=== PATIENT | female | born 1960 | race Caucasian/White ===

== ENCOUNTER 2023-08-31 05:00 | Observation (INO) ==
[2023-08-31] MEDS ORDERED: Propofol 10 MG/ML 20 ML BTL ONE ×2 (05:32→10:37)
[2023-08-31] MEDS ORDERED: Succinylcholine 200 mg VIAL 20 mg/ml 10 ml VIAL (200 mg) ONE (05:43)
[2023-08-31] MEDS ORDERED: Propofol 10 MG/ML 20 ML BTL IV PUSH ONE (05:43)
[2023-08-31] MEDS ORDERED: Rocuronium 50 mg VIAL 10 mg/ml 5 ml VIAL (50 mg) ONE (05:43)
[2023-08-31] MEDS ORDERED: fentaNYL 100 mcg/2 ml 50 MCG/ML VIAL IV SLOW PU ONE ×2 (05:53→06:14)
[2023-08-31 06:56] LABS: ABS Lymphocytes 1.8 10^3/uL (1.0-4.8); ABS Monocytes 0.5 10^3/uL (0.0-0.9); ABS Neutrophils 6.8 10^3/uL (1.5-7.6); ABS Nucleated RBC 0.02 10^3/ul; Eosinophil % 0.3 %; Hemoglobin 13.4 g/dL (11.5-14.3); Lymphocyte % 19.5 %; Mean Corpuscular Hemoglobin 27.4 pg (27-33); Mean Corpuscular Hgb Conc 33.5 g/dL (31-36); Mean Corpuscular Volume 81.8 fL (80-97); Mean Platelet Volume 7.1 fL (7.5-11.2); Nucleated Red Blood Cells % 0.2 %/100WBC (0.0-0.8); Platelet Count 252 10^3/uL (150-450); Red Blood Count 4.89 10^6/uL (3.63-4.92); Red Cell Distribution Width 14.9 % (12-17); White Blood Count 9.2 10^3/uL (3.8-11.8)
[2023-08-31 07:06] LABS: Albumin 4.2 g/dL (3.2-5.2); Albumin/Globulin Ratio 1.4 (1-3); Calcium 9.1 mg/dL (8.6-10.3); Creatinine, Serum 0.68 mg/dL (0.51-0.95); Globulin 3.1 g/dL (2-4); Potassium 3.9 mmol/L (3.5-5.0); Total Bilirubin 0.7 mg/dL (0.2-1.0); Total Protein 7.3 g/dL (6.4-8.9); eGFR CKD-EPI 96.6 (>60)
[2023-08-31] MEDS ORDERED: Senna TAB 8.6 mg TAB PO PRN (07:08)
[2023-08-31] MEDS ORDERED: Ondansetron 4 mg VIAL 2 MG/ML 2 ml VIAL IV PRN (07:08)
[2023-08-31] MEDS ORDERED: Polyethylene Glycol 3350 17 GM PACKET PO PRN (07:08)
[2023-08-31] MEDS ORDERED: HYDROmorphone 1 MG/1 ML SYRINGE IV ONE (07:24)
[2023-08-31] MEDS ORDERED: hydrALAZINE 20 mg/ml 1 ML Vial IV IV SLOW PU ONE (08:58)
[2023-08-31] MEDS ORDERED: HYDROcodone/ACETAMIN 5/325 mg TAB PO SCH (09:00)
[2023-08-31] MEDS: HYDROmorphone 1 MG/1 ML SYRINGE IV PRN ×2 (09:06→12:53)
[2023-08-31] MEDS ORDERED: fentaNYL 100 mcg/2 ml 50 MCG/ML VIAL ONE (10:36)
[2023-08-31] MEDS ORDERED: Lidocaine 2% PF 5 ML VIAL ONE (10:37)
[2023-08-31] MEDS ORDERED: Phenylephrine 40 mcg/mL 10mL (400mcg) SYRINGE ONE (11:01)
[2023-08-31] MEDS ORDERED: Ondansetron 4 mg VIAL 2 MG/ML 2 ml VIAL ONE (11:08)
[2023-08-31] MEDS ORDERED: HYDROcodone/ACETAMIN 5/325 mg TAB PO PRN (11:28)
[2023-08-31] MEDS ORDERED: oxyCODONE/Acetamin 5/325 mg TAB PO PRN (11:28)
[2023-08-31] MEDS ORDERED: Naloxone 0.4 mg VIAL 0.4 mg/ml 1 ml VIAL IV PRN (11:28)
[2023-08-31] MEDS ORDERED: fentaNYL 100 mcg/2 ml 50 MCG/ML VIAL IV PRN (11:28)
[2023-08-31 15:06] VITALS: BP 143/80
== END 2023-08-31 15:40 | disposition home or self-care (01) ==
LOC: ED 05:00 → EDHOLD 05:00 → AA 09:19 → SSU 11:21
PROVIDERS: ADMIT Internal Medicine; ATTEND Internal Medicine